=== PATIENT | male | born 2000 | race African-American/Black ===

== ENCOUNTER 2022-03-02 18:50 | Emergency (ER) | payer BC, OTHER ==
[2022-03-02] MEDS ORDERED: Ketorolac Tromethamine 30 MG/ML VIAL ONE (19:22)
[2022-03-02] MEDS ORDERED: Diazepam 10 MG/2 ML SYRINGE ONE (19:23)
== END 2022-03-02 19:54 | disposition home or self-care (01) ==
LOC: ERS 18:50
DX: M54.50 Low back pain, unspecified (principal)
CPT/HCPCS: 96372; 99283; J1885; J3360

== ENCOUNTER 2022-04-05 21:13 | Emergency (ER) | payer BC | END 2022-04-05 23:40 | disposition home or self-care (01) | LOC: ERS 21:13 | DX: S62.320A Displaced fracture of shaft of second metacarpal bone, right hand, initial encounter for closed fracture (principal); S62.322A Displaced fracture of shaft of third metacarpal bone, right hand, initial encounter for closed fracture; W50.2XXA Accidental twist by another person, initial encounter; Y93.67 Activity, basketball | CPT/HCPCS: 29105 ==

== ENCOUNTER 2022-07-27 09:56 | Outpatient (CLI) | payer BC, OTHER | END 2022-07-27 09:57 | disposition home or self-care (01) | LOC: BICRAD 09:56 | PROVIDERS: ATTEND Family Medicine | DX: M79.641 Pain in right hand (principal); S92.331D Displaced fracture of third metatarsal bone, right foot, subsequent encounter for fracture with routine healing; S92.321D Displaced fracture of second metatarsal bone, right foot, subsequent encounter for fracture with routine healing ==